=== PATIENT | female | born 2005 | race Caucasian/White ===

== ENCOUNTER 2024-04-25 17:18 | Emergency (ER) | payer MEDICAID ==
[~2024-04-25] VITALS: Ht 162.6 cm; Wt 74.0 kg
[2024-04-25 17:41] VITALS: O2SAT 100
[2024-04-25 17:59] VITALS: BP 106/56; PULSE 87; RESP 16; TEMP 98.8; O2SAT 98
[2024-04-25] MEDS: TETRACAINE/BENZOCAINE/BUTAMBEN 20 GM SPRAY MM NR (21:47)
[2024-04-25] MEDS ORDERED: KETO10TA2 MT (22:22)
[2024-04-25] MEDS ORDERED: DEXA2TAB MT (22:22)
== END 2024-04-25 22:35 | disposition home or self-care (01) ==
LOC: ER 17:18
DX: J36 Peritonsillar abscess (principal)
CPT/HCPCS: 42700; 99284; Z7610